=== PATIENT | female | born 1985 | race Caucasian/White ===

== ENCOUNTER → 2016-04-19 | Outpatient (CLI) | payer BC ==
--- NOTE | 2016-04-19 11:21 | XCELERA REPORT ---
[address] [address] Lower Extremity Venous Evaluation Name: BRANDY DOZIER Age: 30 yrs Gender: Female : 1985 Patient Status: Outpatient Patient Location: Study Date: 04/19/2016 09:25 AM Procedure: Color flow and duplex imaging of the veins of the right lower extremity as well as the left Common Femoral vein. Reason For Study: RLE PAIN Ordering Physician: ERICA WELLS PA-C Performed By: Whitney Sue Right Sided Venous Evaluation Normal vessel filling wall to wall, compression and augmentation as well as Colour flow down to the infrageniculate veins. Left Sided Venous Evaluation The left common femoral vein is fully compressible. Spontaneous and phasic flow is present in the left common femoral vein. Interpretation Summary No duplex evidence of DVT or obstruction in the right lower extremity nor in the left Common Femoral vein. : ERICA WELLS PA-C > Maninder Zaidi
== END ==
LOC: SP 08:45
PROVIDERS: ATTEND Physician Assistant
DX: M79.661 Pain in right lower leg (principal)
CPT/HCPCS: 93971